=== PATIENT | male | born 1945 | race Caucasian/White ===

== ENCOUNTER 2019-07-19 13:31 | Inpatient (IN) ==
[2019-07-19] MEDS ORDERED: SODIUM CHLORIDE 0.9% 500 ML IV ONE (14:25)
[2019-07-19 14:49] LABS: Basophils # (auto) 0.02 K/uL (0-0.2); Basophils % (auto) 0.2 %; Eosinophils # (auto) 0.02 K/uL (0-0.5); Eosinophils % (auto) 0.2 %; Hematocrit (blood only) 45.7 % (42-52); Hemoglobin 15.7 g/dL (14.0-18.0); Immature Granulocytes # (auto) 0.01 K/uL (0.00-0.02); Immature Granulocytes % (auto) 0.1 %; Lymphocytes # (auto) 0.94 K/uL (1.2-3.4); Lymphocytes % (auto) 9.4 %; Mean Corpuscular Hemoglobin 31.7 pg (25-34); Mean Corpuscular Hgb Conc 34.4 g/dL (32-36); Mean Corpuscular Volume 92.3 fL (80-100); Mean Platelet Volume 10.3 fL (7.4-10.4); Monocytes # (auto) 0.62 K/uL (0.11-0.59); Monocytes % (auto) 6.2 %; Neutrophils % (auto) 83.9 %; Platelet Count 174 K/uL (130-400); RDW Coefficient of Variation 14.1 % (11.5-14.5); RDW Standard Deviation 47.6 fL (36.4-46.3); Red Blood Count 4.95 M/uL (4.7-6.1); White Blood Count 10.01 K/uL (4.8-10.8)
[2019-07-19 15:06] LABS: Alanine Aminotransferase 32 U/L (12-78); Albumin Level 3.9 gm/dl (3.4-5.0); Aspartate Aminotransferase 21 U/L (15-37); BUN Creatinine Ratio 14.6 (10-20); Blood Urea Nitrogen 16 mg/dl (7-18); Carbon Dioxide 27 mmol/L (21-32); Chloride 107 mmol/L (98-107); Creatinine Clr Calc Pharmacy 57.3 ml/min; Est GFR (African American) 74.4; Est GFR (Non-African American) 64.2; Glucose 115 mg/dl (70-99); Magnesium 2.1 mg/dl (1.8-2.4); Partial Thromboplastin Time 27.2 Seconds (21.0-31.0); Potassium 3.8 mmol/L (3.5-5.1); Prothrombin Time 10.1 Seconds (9.0-12.0); Sodium 139 mmol/L (136-145)
[2019-07-19] MEDS ORDERED: OPTIRAY 320 125ml IV PRN (15:12)
[2019-07-19 15:16] LABS: Albumin Globulin Ratio 1.2 (0.9-2); Alkaline Phosphatase 92 U/L (45-117); Bilirubin,Total 0.4 mg/dl (0.2-1); Globulin 3.3 gm/dl (2.5-4.0); Phosphorus 2.5 mg/dl (2.5-4.9); Total Protein 7.2 gm/dl (6.4-8.2); Troponin I < 0.015 ng/ml (0-0.045)
[2019-07-19 15:18] LABS: Appearance Urine Clear (Clear); Bilirubin Urine Negative (Negative); Blood Urine Negative (Negative); Color Urine Yellow; Glucose Urine UA Negative (Negative); Ketones Urine 1+ (Negative); Leukocyte Esterase Urine Negative (Negative); Nitrite Urine Negative (Negative); Protein Urine Negative (Negative); Specific Gravity Urine 1.011 (1.000-1.030); Urobilinogen Urine Negative (Negative); pH Urine 7.5 (4.5-7.5)
--- NOTE | 2019-07-19 15:26 | CT Scan Report ---
CT head/brain wo con CLINICAL HISTORY: History of abnormal MRI study with a left cerebellar infarct. COMPARISON STUDY: None TECHNIQUE: Axial CT of the brain is performed from the vertex to the skull base. IV contrast was not administered for this examination. A dose lowering technique was utilized adhering to the principles of ALARA. CT DOSE: FINDINGS: No intra or extra-axial mass lesions are visualized. There is no evidence of midline shift. There is no acute hemorrhage. No calvarial fractures are visualized. There are minor white matter hypodensities likely on a small vessel basis. There is a subtle hypodensity in the region of the left cerebellar peduncle. This could represent eit her an infarct or be artifactual. Correlation with patient's prior MRI study is recommended. There is no evidence of pathologic ventricular dilatation. There is no evidence of acute sinusitis IMPRESSION: 1. No evidence of acute hemorrhage 2. Small infarct in the region of the left cerebellar peduncle versus posterior fossa artifact. Corre lation with the prior MRI findings is recommended. ACT 112: Negative or not required by law. Electronically signed by: Satya Corrigan M.D. 07/19/2019 3:24 PM
--- NOTE | 2019-07-19 15:28 | CT Scan Report ---
CT angio head w con CLINICAL HISTORY: 74 years-old Male presenting with MRI on Tariq with subacute L cerebellar cva. TECHNIQUE: Multidetector CT angiography of the head was performed after the administration of intrave nous contrast. 3-D volumetric and/or maximum intensity projection (MIP) images were subsequently vipin nstructed for review. IV contrast: 119 mL of Optiray 320. One or more dose lowering techniques were u sed consistent with the principles of ALARA (as low as reasonably achievable), including automatic ex posure control, mA or kV adjustment to individual patient size, and/or use of iterative reconstructio n. COMPARISON: None. CT DOSE (mGy.cm): The estimated cumulative dose is 1149.39 mGy.cm. FINDINGS: Pot Lining Supervisor topogram: Unremarkable. Anterior circulation: Atherosclerosis of the cavernous segments of the internal carotid arteries. Int racranial portions of the internal carotid arteries patent to the level of the termini. Anterior cere bral arteries patent with a trifurcation at the anterior communicating artery resulting in 3 A2 segme nts. Middle cerebral arteries patent. Anterior communicating artery (Acomm) patent with an infundibul um at the left ORALIA origin. 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 Posterior circulation: Codominant vertebral arteries. Intradural portions of the vertebral arteries p atent. Posterior inferior cerebellar arteries patent. Basilar artery patent. Anterior inferior cerebe llar arteries poorly visualized. Superior cerebellar arteries patent. Posterior cerebral arteries pat ent. Right posterior communicating artery (P-comm) patent. Left P-comm hypoplastic or aplastic. Dural venous sinuses: Patent. Other: Extra-axial masslike thickening of the calvarium with periosteal reaction in the left temporal region (series 5 image 112). Right mastoid air cell fluid. IMPRESSION: 1. No evidence of aneurysm, focal vessel occlusion, or significant stenosis of the intracranial dion siria. 2. Variant anatomy as above. 3. Suspected meningioma in the left temporal region given the calvarial thickening. Follow-up nonurg ent outpatient contrast enhanced MR brain is recommended. 4. Nonspecific right mastoid air cell fluid. ACT 112: Negative or not required by law. Electronically signed by: Thee Buchanan M.D. 07/19/2019 3:27 PM
--- NOTE | 2019-07-19 15:29 | CT Scan Report ---
CT angio neck with con CLINICAL HISTORY: MRI on Thursday with subacute L cerebellar cva COMPARISON STUDY: No previous studies for comparison. TECHNIQUE: CT angiography was performed from the aortic arch to the skull base. MIP imaging was perfo rmed. The patient was scanned in a dynamic helical fashion during intravenous administration of 119 c c of Optiray 320. A dose lowering technique was utilized adhering to the principles of ALARA. CT DOSE: Technique: CT angiogram of the carotid and vertebral arteries was obtained using intravenous contrast and 3-D reconstruction. NASCET criteria was utilized. Findings: There is pulmonary emphysema. The right carotid revealed no evidence of aneurysm and no evidence of dissection. There is no evidenc e of hemodynamic significant stenosis. The left carotid revealed no evidence of hemodynamic significant stenosis. There is no evidence of an eurysm. There is no evidence of dissection. There is no evidence of hemodynamically significant vertebral stenosis. There is no evidence of verte bral dissection. There is a left vertebral fenestration at the C4 level. IMPRESSION: No evidence of hemodynamically significant carotid or vertebral artery stenosis. No evidence of disse ction. ACT 112: Negative or not required by law. Electronically signed by: Satya Corrigan M.D. 07/19/2019 3:28 PM
--- NOTE | 2019-07-19 17:04 | History & Physical Report ---
Date of Service July 19, 2019 Assessment & Plan (1) Stroke: Pt is 74 y/o M with PMH tobacco use presented to ER for abnormal MRI brain. Patient reports 6 months ago had noticed worsening vision described as " dark vision". In April 2019 had sudden onset of decline in vision and float ers which has continued. Denies any TONY, dizziness, paresthesias, extremity weakness, speech changes at that time. Followed with ophthalmology 05/2019 and vision loss thought secondary to macular degeneration. 07/15/2019 follow up and had MRI brain ordered Outpatient 07/16/2019 MRI brain with and without contrast: Small foci of restricted diffusion in the inferior aspect of the right cerebellum and the anterior superior aspect of the left cerebellum with associated FLAIR and T2 signal abnormalities, in keeping with acute/early subacute infarcts. Today in ER vitals stable. CT HEAD:1. No evidence of acute hemorrhage 2. Small infarct in the region of the left cerebellar peduncle versus posterior fossa artifact. Correlation with the prior MRI findings is recommended. CTA HEAD:1. No evidence of aneurysm, focal vessel occlusion, or significant stenosis of the intracranial arteries. 2. Variant anatomy as above. 3. Suspected meningioma in the left temporal region given the calvarial thickening. Follow-up nonurgent outpatient contrast enhanced MR brain is recommended. 4. Nonspecific right mastoid air cell fluid. CTA NECK:No evidence of hemodynamically significant carotid or vertebral artery stenosis. No evidence of dissection. -Tele to monitor for arrhythmias -Lipids, A1c in AM -Echo with bubble study -aspiration precautions -PT/OT consult -Start aspirin, Plavix, statin -neurology consult, spoke to Dr Diaz recommends aspirin and Plavix (2) HTN (hypertension): In ER BP: 138/84 up to 170/103 after pt upset about diagnosis and admiss ion. BP down to 147/90 shortly after -Monitor BP -May need to consider adding BP agent (3) Tobacco use: -Smoking cessation encouraged and pt reports would consider -Nicotine patch DVT Prophylaxis -Lovenox SQ Full Code as per discussion with pt, however reports if poor prognosis would not want maintained on life support Has not seen PCP for years. Is to become established with Dr Frederick in 07/2019. Pt was seen and care coordinated with Dr García. See addendum History of Present Illness Chief Complaint: Abnormal MRI brain Primary Care Provider: Jono Frederick MD Pt is 74 y/o M with PMH tobacco use presented to ER for abnormal MRI brain. Patient reports 6 months ago had noticed worsening vision described as " dark vision". In April 2019 had sudden onset of decline in vision and floaters. Denies any TONY, dizziness, paresthesias, extremity weakness, speech changes at that time. Patient reports vision decline has been consistent and has not had any worsening. Patient had followed up with ophthalmology Dr Mendiola from 06/10/2019 and was diagnosed with age-related macular degeneration both eyes with active choroidal revascularization and had a for Avastin injection. Reports had second opinion at [place] retina specialist. Patient had follow-up with ophthalmology on 07/15/2019 and patient had additional have Avastin injection and MRI brain was ordered. Patient reports has headaches approximately once a month and had most recent headache 2-3 days ago described as posterior headache relieved with 1 tab of Aleve. Denies any neuro symptoms. 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 Does not use any assist devices for walking. 07/16/2019 MRI brain with and without contrast: Small foci of restricted diffusion in the inferior aspect of the right cerebellum and the anterior superior aspect of the left cerebellum with associated FLAIR and T2 signal abnormalities, in keeping with acute/early subacute infarcts. Patient has not followed up with since . Denies fever/chills, diaphoresis, N/V/D/C, dizziness, syncope, speech changes, neck pain, CP, SOB, orthopnea, palpitations, cough, sore throat, choking, otalgia, rhinorrhea, abdominal pain, paresthesias, weakness, extremity weakness, extremity edema, rashes, urinary symptoms. Allergies Allergy/AdvReac Type Severity Reaction Status Date / Time No Known Allergies Allergy Unverified 07/19/19 16:04 Home Medications Home Medications Medication Instructions Recorded Confirmed Type vit C,E-Fe-ogznn-lutein-zeaxan 1 tab PO BID 07/19/19 07/19/19 History [PreserVision AREDS-2] Past Med/Surg History Medical History Macular degeneration Tobacco use Surgical History History of right inguinal hernia repair 1983 Family History Father Coronary heart disease Brother Cancer Sister Cancer Other Diabetes Hypertension Social History Preferred Language: Welsh Communication Ability: Effective Beliefs That Will Affect Care: None Current Living Situation: Family Current Living Situation Comment: LIVES WITH SON Other Information That Helps Us Care for You: No Feels Safe at Home: Yes Safety Concerns: Feels Safe At This Time Smoking Status: Current every day smoker Tobacco Type: cigars ; Cigarettes Per Day: 5 cigars/ day ; Do You Dip or Chew Tobacco: No ; Hx Alcohol Use: Yes (2 shots whiskey daily) Alcohol type: hard liquor Hx Substance Use: No Review of Systems Review of Systems: All systems reviewed & are unremarkable except as noted in HPI & below Physical Exam Physical Exam: General: no distress, WDWN Head: normocephalic, atraumatic Eyes: PERRL, EOM's intact, +conjunctiva injection to right eye, anicteric, +poor vision, able to see finger at approx 18 inches ENT: hard of hearing, normal inspection external ears, nose, mucous membranes moist Neck: supple, trachea midline, non-tender Lungs: clear, no respiratory distress, no wheezing/rhonchi/rales CV: RRR, no murmur, no pretibial edema Abd: normal BS, soft, non-tender Ext: no cyanosis, no calf tenderness Neuro: A&O x 3, normal affect, No nystagmus, Facial sensation is intact and symmetric, face is strong and symmetric, Soft palate elevates symmetrically, no dysarthria, Shoulder shrug intact, Tongue is midline, normal movement, no fasciculations, no pronator drift Skin: warm, dry Results & Data Vital Signs (Past 12 Hours) Vital Signs Temp Pulse Resp BP Pulse Ox 07/19/19 16:46 84 19 147/90 H 97 07/19/19 16:40 88 18 170/103 H 97 07/19/19 16:30 88 21 142/111 H 98 07/19/19 16:00 83 17 132/82 96 07/19/19 15:45 80 18 138/84 96 07/19/19 15:30 88 21 142/87 H 96 07/19/19 15:22 94 H 18 97 07/19/19 15:00 90 22 146/85 H 97 07/19/19 14:45 94 H 22 130/90 07/19/19 14:31 89 16 146/104 H 95 07/19/19 14:30 92 H 21 96 07/19/19 14:15 99 H 21 157/103 H 96 07/19/19 14:05 95 H 19 95 07/19/19 14:00 97 H 21 151/101 H 94 07/19/19 13:38 36.4 C L 104 H 18 159/108 H 98 Laboratory Results Short CBC 07/19/19 Range/Units 14:40 WBC 10.01 (4.8-10.8) K/uL Hgb 15.7 (14.0-18.0) g/dL Hct 45.7 (42-52) % Plt Count 174 (130-400) K/uL BMP 07/19/19 14:40 Sodium 139 Potassium 3.8 Chloride 107 Carbon Dioxide 27 BUN 16 Creatinine 1.11 Glucose 115 H Calcium 9.0 Cardiac Enzymes 07/19/19 Range/Units 14:40 Troponin I < 0.015 (0-0.045) ng/ml Liver Function 07/19/19 Range/Units 14:40 Total Bilirubin 0.4 (0.2-1) mg/dl AST 21 (15-37) U/L ALT 32 (12-78) U/L Alkaline Phosphatase 92 (45-117) U/L Albumin 3.9 (3.4-5.0) gm/dl Urine 07/19/19 Range/Units 14:58 Urine Color Yellow Urine Appearance Clear (Clear) Urine pH 7.5 (4.5-7.5) Ur Specific [place] 1.011 (1.000-1.030) Urine Protein Negative (Negative) Urine Glucose (UA) Negative (Negative) Diagnostic Findings CT HEAD: IMPRESSION: 1. No evidence of acute hemorrhage 2. Small infarct in the region of the left cerebellar peduncle versus posterior fossa artifact. Correlation with the prior MRI findings is recommended. CTA HEAD: IMPRESSION: 1. No evidence of aneurysm, focal vessel occlusion, or significant stenosis of the intracranial arteries. 2. Variant anatomy as above. 3. Suspected meningioma in the left temporal region given the calvarial thickening. Follow-up nonurgent outpatient contrast enhanced MR brain is recommended. 4. Nonspecific right mastoid air cell fluid. CTA NECK: IMPRESSION: No evidence of hemodynamically significant carotid or vertebral artery stenosis. No evidence of dissection. ECG Rate (beats per minute): 88 Rhythm: sinus rhythm Code Status & VTE Plan VTE Prophylaxis Plan VTE Prophylaxis will be ordered: Yes Supervising Physician Co-Signing Physician Notes Attending Addendum: care coordinated with CARLO Waddell please refer to her notes for full details, I agree with her notes patient seen and examined, records reviewed by myself as well on exam, patient seen resting in bed, comfortable, not in distress reports ongoing visual disturbance- blurry for the past few weeks, unchanged for the past few days no other new focal weakness or nubmness no other symptoms VS noted and reviewed oriented x 3 , not in distress, speaks in sentences with no effort nor accessory muscle use normal rate, regular rhythm, no murmurs clear breath sounds bilaterally non distended, soft, nontender no bipedal edema, erythema, warmth Neuro: (+) decreased visual acuity, otherwise CN 2-12 grossly intact no other focal neuro deficits on exam WBC 10 Hg 15[address] head: 1. No evidence of acute hemorrhage 2. Small infarct in the region of the left cerebellar peduncle versus posterior fossa artifact. Correlation with the prior MRI findings is recommended. CT angio head: 1. No evidence of aneurysm, focal vessel occlusion, or significant stenosis of the intracranial arteries. 2. Variant anatomy as above. 3. Suspected meningioma in the left temporal region given the calvarial thickening. Follow-up nonurgent outpatient contrast enhanced MR brain is recommended. 4. Nonspecific right mastoid air cell fluid. Ct angio neck: No evidence of hemodynamically significant carotid or vertebral artery stenosis. No evidence of dissection. ASSESSMENT AND PLAN VISUAL DISTURBANCE, LIKELY SECONDARY TO CEREBELLAR STROKE discussed with Dr. Diaz- recommend ASA + Plavix, Lipitor check echo will need child monitor as outpatient ELEVATED BLOOD PRESSURE likely from underlying stress monitor other diagnoses and plan of care as per CARLO Waddell. notes Philippe García MD (1) Stroke CVA mechanism: unspecified Qualified Code(s): I63.9 - Cerebral infarction, unspecified
[2019-07-19] MEDS ORDERED: PHARMACIST DISCHARGE MED REC CONSULT PRN (18:39)
[2019-07-19] MEDS ORDERED: ACETAMINOPHEN 325 MG TAB PO PRN (18:39)
[2019-07-19] MEDS: CLOPIDOGREL BISULFATE 75 MG TAB PO SCH (20:07)
[2019-07-19] MEDS: ASPIRIN 81 MG ECTAB PO SCH (20:08)
[2019-07-19] MEDS ORDERED: NON-FORMULARY MEDICATION (Vit C,E-Zn-Coppr-Lutein-Zeaxan [Preservision Areds-2] 1 TAB) PO SCH (21:00)
[2019-07-19] MEDS ORDERED: ENOXAPARIN INJ 40 MG/0.4 ML SYR SQ SCH (21:00)
--- NOTE | 2019-07-19 22:10 | Emergency Department Note ---
Entered by Madeleine Goldman acting as a scribe for Eb Garvin MD History of Present Illness General Chief complaint: Visual Disturbance Stated complaint: LOOSING EYE SIGHT Time Seen by Provider: 07/19/19 14:03 Source: patient History of Present Illness Provider complaint: Visual Disturbances Onset (ago): month(s) 1 Location: eyes Relieved By: + none Exacerbated By: + none Associated symptoms: + cough The patient is a 74 year old male who presents to the Emergency Room with complaints of visual disturbances that began 1 month ago. The patient states that his symptoms are not relieved nor exacerbated by anything specific. The patient reports experiencing a cough. The patient notes that he had an MRI done on Thursday and it was clear but the patient states that the doctor called back and told him to honeycutt to the ED. Home Medications Home Medications Medication Instructions Recorded Confirmed Type vit C,M-Nn-jjnyy-lutein-zeaxan 1 tab PO BID 07/19/19 07/19/19 History [PreserVision AREDS-2] Allergies Allergy/AdvReac Type Severity Reaction Status Date / Time No Known Allergies Allergy Unverified 07/19/19 16:04 Past Med/Surg History Medical History Macular degeneration Stroke (Acute) Tobacco use Surgical History History of right inguinal hernia repair 1983 Family History Father Coronary heart disease Brother Cancer Sister Cancer Other Diabetes Hypertension Social History Preferred Language: [place] Communication Ability: Effective Beliefs That Will Affect Care: None Current Living Situation: Family Current Living Situation Comment: LIVES WITH SON Other Information That Helps Us Care for You: No Feels Safe at Home: Yes Safety Concerns: Feels Safe At This Time Smoking Status: Current every day smoker Tobacco Type: cigars ; Cigarettes Per Day: 5 cigars/ day ; Do You Dip or Chew Tobacco: No ; Hx Alcohol Use: Yes (2 shots whiskey daily) Alcohol type: hard liquor Hx Substance Use: No Review of Systems See HPI for pertinent positives & negatives. and A total of 10 systems reviewed and were otherwise negative Physical Exam Vital Signs Vital Signs - 24 hr 07/19/19 13:38 07/19/19 14:00 07/19/19 14:05 Temperature 36.4 C L Temperature Source Oral Pulse Rate 104 H 97 H 95 H Pulse Rate from SpO2 Sensor 96 H 95 H Pulse Rhythm Regular Pulse Strength Normal Respiratory Rate 18 21 19 Respiratory Effort / Characteristics Non-Labored Respiratory Depth Normal Respiratory Pattern Regular Blood Pressure 159/108 H 151/101 H Blood Pressure Mean 125 118 Blood Pressure Position Sitting Pulse Oximetry 98 94 95 Oxygen Delivery Method Room Air Sepsis Recent Fever Within 48 Hours No Sepsis New/Unexplained Change in Mental Status No Sepsis Action Taken by Nursing No Action Required 07/19/19 14:15 07/19/19 14:30 07/19/19 14:31 Temperature Temperature Source Pulse Rate 99 H 92 H 89 Pulse Rate from SpO2 Sensor 99 H 95 H 89 Pulse Rhythm Pulse Strength Respiratory Rate 21 21 16 Respiratory Effort / Characteristics Respiratory Depth Respiratory Pattern Blood Pressure 157/103 H 146/104 H Blood Pressure Mean 109 127 Blood Pressure Position Pulse Oximetry 96 96 95 Oxygen Delivery Method Sepsis Recent Fever Within 48 Hours Sepsis New/Unexplained Change in Mental Status Sepsis Action Taken by Nursing 07/19/19 14:45 07/19/19 15:00 07/19/19 15:22 Temperature Temperature Source Pulse Rate 94 H 90 94 H Pulse Rate from SpO2 Sensor 91 H 93 H Pulse Rhythm Pulse Strength Respiratory Rate 22 22 18 Respiratory Effort / Characteristics Respiratory Depth Respiratory Pattern Blood Pressure 130/90 146/85 H Blood Pressure Mean 99 112 Blood Pressure Position Pulse Oximetry 97 97 Oxygen Delivery Method Sepsis Recent Fever Within 48 Hours Sepsis New/Unexplained Change in Mental Status Sepsis Action Taken by Nursing 07/19/19 15:30 07/19/19 15:45 07/19/19 16:00 Temperature Temperature Source Pulse Rate 88 80 83 Pulse Rate from SpO2 Sensor 89 80 81 Pulse Rhythm Pulse Strength Respiratory Rate 21 18 17 Respiratory Effort / Characteristics Respiratory Depth Respiratory Pattern Blood Pressure 142/87 H 138/84 132/82 Blood Pressure Mean 94 93 91 Blood Pressure Position Pulse Oximetry 96 96 96 Oxygen Delivery Method Sepsis Recent Fever Within 48 Hours Sepsis New/Unexplained Change in Mental Status Sepsis Action Taken by Nursing 07/19/19 16:30 07/19/19 16:40 07/19/19 16:46 Temperature Temperature Source Pulse Rate 88 88 84 Pulse Rate from SpO2 Sensor 90 87 86 Pulse Rhythm Pulse Strength Respiratory Rate 21 18 19 Respiratory Effort / Characteristics Respiratory Depth Respiratory Pattern Blood Pressure 142/111 H 170/103 H 147/90 H Blood Pressure Mean 125 128 120 Blood Pressure Position Pulse Oximetry 98 97 97 Oxygen Delivery Method Sepsis Recent Fever Within 48 Hours Sepsis New/Unexplained Change in Mental Status Sepsis Action Taken by Nursing GENERAL: Awake, alert, well-appearing, in no distress HENT: Normocephalic, atraumatic. Oropharynx with dry mucous membranes and otherwise unremarkable. EYES: Normal conjunctiva. Sclera non-icteric. Impaired vision but with gross vision intact able to count fingers and describe illustrations and near vision. There is a scant right subdural Tylenol hemorrhage from his recent injections. EOMI. No nystamgus. PEARRL. NECK: Supple. No nuchal rigidity. FROM. No JVD. RESPIRATORY: CTAB. CARDIAC: Regular rate, normal rhythm. Extremities warm and well perfused. Pulses equal. ABDOMEN: Soft, non-distended. No tenderness to palpation. No rebound or guarding. No masses. RECTAL: Deferred. MUSCULOSKELETAL: Chest examination reveals no tenderness. The back is symmetrical on inspection without obvious abnormality. There is no CVA t enderness to palpation. No joint edema. LOWER EXTREMITIES: Calves are equal size bilaterally and non-tender. No edema. No discoloration. NEURO: Normal sensorium. No sensory or motor deficits noted. 5/5 strength and SILT x4 extremities. Cerebellar function intact, including finger to nose, alternating palms, heel to das. SKIN: No rash or jaundice noted. Course Course 1412: Past medical records reviewed. The patient was evaluated in room A12B. A complete history and physical exam was performed. 1432: [facility] MRI results were reviewed. MRI revealed small foci of restricted diffusion in the inferior aspect of the right cerebellum and the anterior superior aspect of the left cerebellum with associated FLAIR and T2 signal abnormalities, in keeping with acute/ear;y subacute infarcts. Per [facility], the symptoms are at least 3 days old. 1553: I spoke with Miriam Brandon PA-C about the patient's case and Dr. García- Hospitalist will accept the patient for further evaluation. Administered Medications Aspirin (Ecotrin Ectab) 81 mg PO [facility] Stop: 08/18/19 18:38 Last Admin: 07/19/19 20:08 Dose: 81 mg Documented by: [id number] Clopidogrel Bisulfate (Plavix) [facility] [place] Stop: 08/18/19 18:38 Last Admin: 07/19/19 20:07 Dose: 75 mg Documented by: [id number] Enoxaparin Sodium (Lovenox) 40 mg SQ Q24H [facility]HEN Stop: 08/18/19 20:59 Last Admin: 07/19/19 20:05 Dose: 40 mg Documented by: [id number] Discontinued Medications Sodium Chloride (Nss) 500 mls @ 999 mls/hr IV .Q31M ONE Stop: 07/19/19 14:55 Last Infusion: 07/19/19 15:26 Dose: 0 mls/hr Documented by: [id number] Admin: 07/19/19 14:51 Dose: 999 mls/hr Documented by: [id number] Ioversol (Optiray 320 125ml) 119 ml IV ONCE PRN PRN Reason: Interaction Checking Stop: 07/23/19 15:11 Last Admin: 07/19/19 15:12 Dose: 119 ml Documented by: [id number] Medical Decision Making Differential Diagnosis Differential Diagnosis includes but is not limited to dehydration, stroke, anemia, hypoglycemia, hyponatremia, hypernatremia, urinary tract infection, pneumonia, bronchitis, sepsis, gastroenteritis, additional abdominal pathology, metabolic abnormalities and infections. Medical Records Attestation: I reviewed the patient's medical records. Home Medications Current Medication List: was personally reviewed by me Laboratory Data Attestation: I reviewed the patient's lab results. Result diagrams: 07/19/19 14:40 07/19/19 14:40 Lab Results 07/19/19 07/19/19 07/19/19 Range/Units 14:36 14:40 14:40 WBC 10.01 (4.8-10.8) K/uL RBC 4.95 (4.7-6.1) M/uL Hgb 15.7 (14.0-18.0) g/dL Hct 45.7 (42-52) % MCV 92.3 (80-100) fL MCH 31.7 (25-34) pg MCHC 34.4 (32-36) g/dL RDW Std Deviation 47.6 H (36.4-46.3) fL RDW Coeff of Mukesh 14.1 (11.5-14.5) % Plt Count 174 (130-400) K/uL MPV 10.3 (7.4-10.4) fL Immature Gran % (Auto) 0.1 % Neut % (Auto) 83.9 % Lymph % (Auto) 9.4 % Carver % (Auto) 6.2 % Eos % (Auto) 0.2 % Baso % (Auto) 0.2 % Immature Gran # (Auto) 0.01 (0.00-0.02) K/uL Neut # (Auto) 8.40 H (1.4-6.5) K/uL Lymph # (Auto) 0.94 L (1.2-3.4) K/uL Carver # (Auto) 0.62 H (0.11-0.59) K/uL Eos # (Auto) 0.02 (0-0.5) K/uL Baso # (Auto) 0.02 (0-0.2) K/uL PT 10.1 (9.0-12.0) Seconds INR 1.0 (0.9-1.1) APTT 27.2 (21.0-31.0) Seconds PTT Ratio 1.0 Sodium (136-145) mmol/L Potassium (3.5-5.1) mmol/L Chloride (98-107) mmol/L Carbon Dioxide (21-32) mmol/L Anion Gap (3-11) BUN (7-18) mg/dl Creatinine (0.6-1.4) mg/dl Est Cr Clr Drug Dosing ml/min Est GFR ( Amer) Est GFR (Non-Af Amer) BUN/Creatinine Ratio (10-20) Glucose (70-99) mg/dl POC Glucose 113 H (70-99) mg/dl Calcium (8.5-10.1) mg/dl Phosphorus (2.5-4.9) mg/dl Magnesium (1.8-2.4) mg/dl Total Bilirubin (0.2-1) mg/dl AST (15-37) U/L ALT (12-78) U/L Alkaline Phosphatase (45-117) U/L Troponin I (0-0.045) ng/ml Total Protein (6.4-8.2) gm/dl Albumin (3.4-5.0) gm/dl Globulin (2.5-4.0) gm/dl Albumin/Globulin Ratio (0.9-2) TSH (0.300-4.500) uIu/ml Urine Color Urine Appearance (Clear) Urine pH (4.5-7.5) Ur Specific Farnham (1.000-1.030) Urine Protein (Negative) Urine Glucose (UA) (Negative) Urine Ketones (Negative) Urine Blood (Negative) Urine Nitrite (Negative) Urine Bilirubin (Negative) Urine Urobilinogen (Negative) Ur Leukocyte Esterase (Negative) 07/19/19 07/19/19 Range/Units 14:40 14:58 WBC (4.8-10.8) K/uL RBC (4.7-6.1) M/uL Hgb (14.0-18.0) g/dL Hct (42-52) % MCV (80-100) fL MCH (25-34) pg MCHC (32-36) g/dL RDW Std Deviation (36.4-46.3) fL RDW Coeff of Mukesh (11.5-14.5) % Plt Count (130-400) K/uL MPV (7.4-10.4) fL Immature Gran % (Auto) % Neut % (Auto) % Lymph % (Auto) % Carver % (Auto) % Eos % (Auto) % Baso % (Auto) % Immature Gran # (Auto) (0.00-0.02) K/uL Neut # (Auto) (1.4-6.5) K/uL Lymph # (Auto) (1.2-3.4) K/uL Carver # (Auto) (0.11-0.59) K/uL Eos # (Auto) (0-0.5) K/uL Baso # (Auto) (0-0.2) K/uL PT (9.0-12.0) Seconds INR (0.9-1.1) APTT (21.0-31.0) Seconds PTT Ratio Sodium 139 (136-145) mmol/L Potassium 3.8 (3.5-5.1) mmol/L Chloride 107 (98-107) mmol/L Carbon Dioxide 27 (21-32) mmol/L Anion Gap 5.0 (3-11) BUN 16 (7-18) mg/dl Creatinine 1.11 (0.6-1.4) mg/dl Est Cr Clr Drug Dosing 57.3 ml/min Est GFR ( Amer) 74.4 Est GFR (Non-Af Amer) 64.2 BUN/Creatinine Ratio 14.6 (10-20) Glucose 115 H (70-99) mg/dl POC Glucose (70-99) mg/dl Calcium 9.0 (8.5-10.1) mg/dl Phosphorus 2.5 (2.5-4.9) mg/dl Magnesium 2.1 (1.8-2.4) mg/dl Total Bilirubin 0.4 (0.2-1) mg/dl AST 21 (15-37) U/L ALT 32 (12-78) U/L Alkaline Phosphatase 92 (45-117) U/L Troponin I < 0.015 (0-0.045) ng/ml Total Protein 7.2 (6.4-8.2) gm/dl Albumin 3.9 (3.4-5.0) gm/dl Globulin 3.3 (2.5-4.0) gm/dl Albumin/Globulin Ratio 1.2 (0.9-2) TSH 1.340 (0.300-4.500) uIu/ml Urine Color Yellow Urine Appearance Clear (Clear) Urine pH 7.5 (4.5-7.5) Ur Specific Farnham 1.011 (1.000-1.030) Urine Protein Negative (Negative) Urine Glucose (UA) Negative (Negative) Urine Ketones 1+ H (Negative) Urine Blood Negative (Negative) Urine Nitrite Negative (Negative) Urine Bilirubin Negative (Negative) Urine Urobilinogen Negative (Negative) Ur Leukocyte Esterase Negative (Negative) Imaging Data Radiologist's Impression: Radiology results as stated below per my review and the radiologist's interpretation: CT head/brain wo con CLINICAL HISTORY: History of abnormal MRI study with a left cerebellar infarct. COMPARISON STUDY: None TECHNIQUE: Axial CT of the brain is performed from the vertex to the skull base. IV contrast was not administered for this examination. A dose lowering technique was utilized adhering to the principles of ALARA. CT DOSE: FINDINGS: No intra or extra-axial mass lesions are visualized. There is no evidence of midline shift. There is no acute hemorrhage. No calvarial fractures are visualized. There are minor white matter hypodensities likely on a small vessel basis. There is a subtle hypodensity in the region of the left cerebellar peduncle. This could represent either an infarct or be artifactual. Correlation with patient's prior MRI study is recommended. There is no evidence of pathologic ventricular dilatation. There is no evidence of acute sinusitis IMPRESSION: 1. No evidence of acute hemorrhage 2. Small infarct in the region of the left cerebellar peduncle versus posterior fossa artifact. Correlation with the prior MRI findings is recommended. ACT 112: Negative or not required by law. Electronically signed by: Satya Corrigan M.D. 07/19/2019 3:[address] angio head w con CLINICAL HISTORY: 74 years-old Male presenting with MRI on Thursday with subacute L cerebellar cva. TECHNIQUE: Multidetector CT angiography of the head was performed after the administration of intravenous contrast. 3-D volumetric and/or maximum intensity projection (MIP) images were subsequently reconstructed for review. IV contrast: 119 mL of Optiray 320. One or more dose lowering techniques were used consistent with the principles of ALARA (as low as reasonably achievable), including automatic exposure control, mA or kV adjustment to individual patient size, and/or use of iterative reconstruction. COMPARISON: None. CT DOSE (mGy.cm): The estimated cumulative dose is 1149.39 mGy.cm. FINDINGS: Irrigation Worker topogram: Unremarkable. Anterior circulation: Atherosclerosis of the cavernous segments of the internal carotid arteries. Intracranial portions of the internal carotid arteries patent to the level of the termini. Anterior cerebral arteries patent with a trifurcation at the anterior communicating artery resulting in 3 A2 segments. Middle cerebral arteries patent. Anterior communicating artery (Acomm) patent with an infundibulum at the left ORALIA origin. 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 Posterior circulation: Codominant vertebral arteries. Intradural portions of the vertebral arteries patent. Posterior inferior cerebellar arteries patent. Basilar artery patent. Anterior inferior cerebellar arteries poorly visualized. Superior cerebellar arteries patent. Posterior cerebral arteries patent. Right posterior communicating artery (P-comm) patent. Left P-comm hypoplastic or aplastic. Dural venous sinuses: Patent. Other: Extra-axial masslike thickening of the calvarium with periosteal reaction in the left temporal region (series 5 image 112). Right mastoid air cell fluid. IMPRESSION: 1. No evidence of aneurysm, focal vessel occlusion, or significant stenosis of the intracranial arteries. 2. Variant anatomy as above. 3. Suspected meningioma in the left temporal region given the calvarial thickening. Follow-up nonurgent outpatient contrast enhanced MR brain is recommended. 4. Nonspecific right mastoid air cell fluid. ACT 112: Negative or not required by law. Electronically signed by: Thee Buchanan M.D. 07/19/2019 3:[address] angio neck with con CLINICAL HISTORY: MRI on Thursday with subacute L cerebellar cva COMPARISON STUDY: No previous studies for comparison. TECHNIQUE: CT angiography was performed from the aortic arch to the skull base. MIP imaging was performed. The patient was scanned in a dynamic helical fashion during intravenous administration of 119 cc of Optiray 320. A dose lowering technique was utilized adhering to the principles of ALARA. CT DOSE: Technique: CT angiogram of the carotid and vertebral arteries was obtained using intravenous contrast and 3-D reconstruction. NASCET criteria was utilized. Findings: There is pulmonary emphysema. The right carotid revealed no evidence of aneurysm and no evidence of dissection. There is no evidence of hemodynamic significant stenosis. The left carotid revealed no evidence of hemodynamic significant stenosis. There is no evidence of aneurysm. There is no evidence of dissection. There is no evidence of hemodynamically significant vertebral stenosis. There is no evidence of vertebral dissection. There is a left vertebral fenestration at the C4 level. IMPRESSION: No evidence of hemodynamically significant carotid or vertebral artery stenosis. No evidence of dissection. ACT 112: Negative or not required by law. Electronically signed by: Satya Corrigan M.D. 07/19/2019 3:28 PM ECG Data Indication: + other (Visual Disturbances) Rate (beats per minute): 88 Rhythm: + normal sinus ECG Intervals/blocks: + Normal QRS (QRS 80) and + Normal QT-c (QTC 445) ECG Mcnabb: + Left axis deviation ECG ST segments: no ST depression and no ST elevation ECG Findings: no PACs and no PVCs Blood Pressure Blood Pressure Findings: Elevated blood pressure Blood Pressure Disposition: further management by hospitalist SAMAN Narrative The patient is a pleasant 74-year-old gentleman who presents emergency department for evaluation of changes over the past month having had outpatient MRI that demonstrated subacute to acute left cerebellar CVA which was performed on 07/16 contacted today by his grill cook who had ordered the study and discussed with neurology who recommended presentation to the emergency department per HPI. Symptoms occur in the setting of an abrupt change in his visual acuity occurring from April to May where he was diagnosed with macular degeneration and started on treatment with injection in May and again on . Pacifically, the patient denies any acute worsening of these vision changes since May. Additionally he denies any weakness of e xtremities, difficulty with speech, difficulty with ambulation or balance. On arrival the patient is in no acute distress, afebrile stable vital signs. On exam patient appears clinically dry. He has impairment of his vision bilaterally but has gross vision intact able to count fingers and described illustrations and near field of vision. EKG without overt acute ischemia. WBC, H/H and platelets within normal limits. Chemistry without acidosis. Electrolytes LFTs unremarkable. Troponin negative/undetectable. UA negative for infection with ketones present consistent with the patient's clinically dry appearance. CT of the head performed and demonstrates small infarct in the region of left cerebellar peduncle versus posterior fossa artifact. CTA of the head negative for focal vessel occlusion aneurysm or significant stenosis. There is a sub-affected meningioma the left temporal region. CTA of the neck negative for severe narrowing or occlusion of large vessels. Given the patien t's CT and outpatient MRI findings reasonable to admit the patient for further stroke evaluation. Patient and family are agreeable with this. Given he has no acute symptoms there was no indication for stroke alert. Case was discussed with Cassandra Michael, [facility], who evaluate the patient for admission. Impression & Plan Stroke, Subconjunctival hemorrhage, Macular degeneration, Dehydration Discharge Plan Visit Data *Final* Discharge Date/Time: 07/19/19 18:40 Chief Complaint: Visual Disturbance Stated Complaint: LOOSING EYE SIGHT ED Provider: Eb Garvin Discharge Problem: Stroke, Subconjunctival hemorrhage, Macular degeneration, Dehydration Patient Disposition: Admitted As Inpatient Discharge Problem: Stroke Qualifiers: CVA mechanism: unspecified Qualified Code(s): I63.9 - Cerebral infarction, unspecified The scribe's documentation has been prepared under my direction and personally reviewed by me in its entirety. I confirm that the note above accurately reflects all work, treatment, procedures, and medical decision making performed by me.
--- NOTE | 2019-07-19 23:11 | Electrocardiogram Report ---
Test Reason : Blood Pressure : / mmHG Vent. Rate : 088 BPM Atrial Rate : 088 BPM P-R Int : 164 ms QRS Dur : 080 ms QT Int : 368 ms P-R-T Axes : 065 -59 055 degrees QTc Int : 445 ms Normal sinus rhythm Possible Left atrial enlargement Left axis deviation Septal infarct , age undetermined Abnormal ECG No previous ECGs available Confirmed by Pedro Ribeiro ([id number]) on 07/19/2019 11:11:14 PM Referred By: REFERRED SELF Confirmed By:Pedro Ribeiro
[2019-07-20 07:27] LABS: Estimated Average Glucose 126 mg/dl
[2019-07-20 07:38] LABS: Chol HDL Ratio 4; Cholesterol 200 mg/dl (0-200); HDL Cholesterol 57 mg/dl; LDL Cholesterol Calculated 124 mg/dl; Triglycerides 94 mg/dl (0-150); VLDL Cholesterol 19 mg/dl
[2019-07-20] MEDS: ASPIRIN 81 MG ECTAB PO SCH (08:29)
[2019-07-20] MEDS: CLOPIDOGREL BISULFATE 75 MG TAB PO SCH (08:29)
[2019-07-20] MEDS ORDERED: NICOTINE 21 MG/24 HR TDSY TD SCH (09:00)
[2019-07-20] MEDS ORDERED: ATORVASTATIN 40 MG TAB PO SCH (09:00)
--- NOTE | 2019-07-20 15:12 | Neurology Consultation ---
Date of Consultation July 20, 2019 Assessment & Plan (1) Stroke: 1. MRI - outside with R/L cerebellum infarct 2. PT/OT speech no current needs 3. smoking cessation discussed 4. modifying life style including limiting EtoH use 5. plavix 75 mg and aspirin 81 mg daily x 21 days then aspirin only 6. optimize HTN, HLD, DM LDL <70 7. TTE pending- need results prior to discharge 8. outpatient ZIO 2 weeks 9. continue to follow with neuro ophthalmology as scheduled for MD 10. needs follow up with PCP for medical management neurology in 4-6 weeks after discharge Yulia Monsalve PAC schedule (2) Tobacco use: as above (3) Macular degeneration: as above Supervising Physician Co-Signing Physician Notes I have seen and discussed above patient with Dr Curt Diaz, neurology I have seen, interviewed and examined this man and discussed his case with Yulia Monsalve PA-C in addition to reviewing his diagnostic studies and the report of his MRI scan which was done on an outpatient basis at the request of our retinal specialist who was concerned because of the rapidity of this man's visual loss. The MRI showed what is likely clinically silent bilateral cerebellar infarctions of small size and examination does not show anything significant other than the central visual loss which is due to the macular degeneration and there is nothing in the occipital cortex to suggest there was a component of ischemic change to explain the central visual deterioration Thus far studies are pretty unremarkable with the echocardiographic examination has not yet been reported We certainly at this point of no evidence for embolic sources but he still could have have paroxysmal atrial fibrillation or a cardiogenic source of other type and will need review of the echocardiogram, continue dual antiplatelet therapy for now and probably an outpatient ZIO Patch if the current echocardiogram does not show a clear source for these clinically silent posterior circulation events Neurology will sign off at this time with plans to see the man in follow-up in about a month and to continue the dual antiplatelet therapy until we have a sergio nce to reassess things Curt Diaz MD History of Present Illness Reason for Consultation: stroke Requesting Physician: Malathi Conti MD Attending Physician: Malathi Conti MD History of Present Illness Tesfaye is a 74 year old male with PMH tobacco use (6 cigars daily) presented to ER for abnormal MRI brain. Around hunting season he was having issues with worsening vision described as " dark vision". In April 2019 had sudden onset of decline in vision and floaters. Since then his vision has been consistent and has not had any worsening. He has been seeing ophthalmology Dr Mendiola from 06/10/2019 and was diagnosed with age-related macular degeneration both eyes with active choroidal revascularization and had a for Avastin injection. He then saw a retinal specialist and follow-up with ophthalmology on 07/15/2019 and patient had additional have Avastin injection and MRI brain was ordered. He has headaches approximately once a month and had most recent headache 2-3 days ago described as posterior headache relieved with 1 tab of Aleve. The MRI did show strokes in the R/L cerebellar. He has not seen a doctor since 1990 when he last renewed his [employer] license. He is not aware of any other medical issues but does state his father had a heart attack at age 49 but lived into his 90's. denies CP, SOB, abdominal pain one sided weakness, numbness tingling, N, V, swallowing issues, new bowel or bladder issues. Allergies Allergy/AdvReac Type Severity Reaction Status Date / Time No Known Allergies Allergy Unverified 07/19/19 16:04 Home Medications Home Medications Medication Instructions Recorded Confirmed Type PreserVision AREDS-2 1 tab PO BID 07/19/19 07/19/19 History aspirin [Ecotrin Low Strength] 81 mg PO QAM 30 Days #30 tab 07/20/19 Rx atorvastatin 40 mg PO QAM 30 Days #30 tab 07/20/19 Rx clopidogrel 75 mg PO QAM 21 Days #21 tab 07/20/19 Rx Patient History Medical History Macular degeneration Stroke (Acute) Tobacco use Surgical History History of right inguinal hernia repair 1983 Family History Father Coronary heart disease Brother Cancer Sister Cancer Other Diabetes Hypertension Social History Preferred Language: Polish Communication Ability: Effective Beliefs That Will Affect Care: None Current Living Situation: Family Current Living Situation Comment: LIVES WITH SON Other Information That Helps Us Care for You: No Feels Safe at Home: Yes Safety Concerns: Feels Safe At This Time Smoking Status: Current every day smoker Tobacco Type: cigars ; Cigarettes Per Day: 5 cigars/ day ; Do You Dip or Chew Tobacco: No ; Hx Alcohol Use: Yes (2 shots whiskey daily) Alcohol type: hard liquor Hx Substance Use: No Physical Exam Physical Exam: Physical Exam: Constitutional: appearance over nourished, healthy and normal Ears, Nose, Mouth and Throat: mucous membranes moist, no injection and skin normal, eyes normal Cardiovascular: normal S-1 and S-2 and regular rate and rhythm Respiratory: course breath sounds Musculoskeletal: no peripheral edema and good distal pulses Skin: no stigmata of neurocutaneous disease noted and normal and intact Eyes: extraocular muscles intact (EOMI) and pupils equal, round and reactive to light (PERRL), gross peripheral vision intact NEUROLOGIC EXAMINATION: Mental status: Alert and interactive Oriented to full date and location Oriented to person Speech fluent with no evidence of aphasia Cranial Nerves smile eye brow raise symmetric Reflexes: Deep tendon reflexes were symmetrical and graded 2/5. down going toes Sensory: no sensory deficits, light cool or vibration Coordination: finger to nose some difficulty with midline vision, heel to das intact Gait/Stance: Posture normal. has been up walking to the bathroom and with PT no difficulty Motor: Negative for pronator drift of out stretched arms with eyes closed. Strength: hand physics professor biceps triceps deltoids bilaterally 5/5 hip flex patellar planter flex ext 5/5 Results & Data Vital Signs (Past 12 Hours) Vital Signs Temp Pulse Resp BP Pulse Ox 07/20/19 11:36 36.6 C 86 18 135/90 96 07/20/19 07:00 36.7 C 82 20 156/92 H 94 07/20/19 04:00 36.6 C 78 20 149/98 H 94 Laboratory Results Abnormal lab results 07/19/19 07/20/19 Range/Units 14:58 06:31 Hemoglobin A1c 6.0 H (4.5-5.6) % Urine Ketones 1+ H (Negative) Diagnostic Findings 07/16/2019 MRI brain with and without contrast: Small foci of restricted diffusion in the inferior aspect of the right cerebellum and the anterior superior aspect of the left cerebellum with associated FLAIR and T2 signal abnormalities, in keeping with acute/early subacute infarcts. CTA head-No evidence of aneurysm, focal vessel occlusion, or significant stenosis of the intracranial arteries. Variant anatomy as above. Suspected meningioma in the left temporal region given the calvarial thickening. Follow-up nonurgent outpatient contrast enhanced MR brain is recommended. Nonspecific right mastoid air cell fluid. CTA neck-No evidence of hemodynamically significant carotid or vertebral artery stenosis. No evidence of dissection. TTE pending (1) Stroke CVA mechanism: unspecified Qualified Code(s): I63.9 - Cerebral infarction, unspecified
--- NOTE | 2019-07-20 15:30 | Hospitalist Progress Note ---
Date of Service July 20, 2019 Assessment & Plan (1) Stroke: Acute versus subacute stroke: Pt is 74 y/o M with PMH tobacco use presented to ER for abnormal MRI brain. Patient reports 6 months ago had noticed worsening vision described as " dark vision". In April 2019 had sudden onset of decline in vision and floaters which has continued. Denies any TONY, dizziness, paresthesias, extremity weakness, speech changes at that time. Followed with ophthalmology 05/2019 and vision loss thought secondary to macular degeneration. 07/15/2019 follow up and had MRI brain ordered Outpatient 07/16/2019 MRI brain with and without contrast: Small foci of re stricted diffusion in the inferior aspect of the right cerebellum and the anterior superior aspect of the left cerebellum with associated FLAIR and T2 signal abnormalities, in keeping with acute/early subacute infarcts. CT HEAD:1. No evidence of acute hemorrhage 2. Small infarct in the region of the left cerebellar peduncle versus posterior fossa artifact. Correlation with the prior MRI findings is recommended. CTA HEAD:1. No evidence of aneurysm, focal vessel occlusion, or significant stenosis of the intracranial arteries. 2. Variant anatomy as above. 3. Suspected meningioma in the left temporal region given the calvarial thickening. Follow-up nonurgent outpatient contrast enhanced MR brain is recommended. 4. Nonspecific right mastoid air cell fluid. CTA NECK:No evidence of hemodynamically significant carotid or vertebral artery stenosis. No evidence of dissection. Does not have any neurological deficit No dysphasia, speech fluent, Normal activity, ambulation as per PT OT evaluation Appreciate input from neurology Recommend dual antiplatelet Plavix 75 mg daily/aspirin 81 mg daily for total 21 days Then on aspirin 81 mg daily Patient started on statin Lipitor 40 mg daily: Fasting lipid profile shows LDL 124 Goal LDL less than 70 Patient will need repeat fasting lipids panel checked in 6 months Smoking cessation counseling provided -. modifying life style including limiting EtoH use No arrhythmia noted on overnight telemetry outpatient ZIO 2 weeks-to be scheduled by patient family physician at [facility] neurology in 4-6 weeks after discharge Yulia Monsalve PAC schedule Macular degeneration continue to follow with neuro ophthalmology as scheduled for MD (2) Tobacco use: -Smoking cessation encouraged and pt reports would consider -Nicotine patch DVT Prophylaxis -Lovenox SQ Stable to be discharged home today, family physician follow-up scheduled for next 07/25/2019 at 9:[address] Pedersen at [facility] Subjective No complaint of any headache, no visual symptoms, no shortness of breath no weakness or paresthesia any part of the body Speech fluent Very eager to be discharged home Review of Systems Review of Systems: All systems reviewed & are unremarkable except as noted in HPI & below Neurologic: as per Subjective / HPI; no unsteadiness, no localized weakness, no paralysis, no numbness, no paresthesia, no headache(s) and no problem reported Physical Exam Constitutional: WD/WN, vitals as above no acute distress Eyes: PERRL, conjunctivae normal, anicteric sclerae ENMT: external ear and nose normal, oropharynx normal Neck: trachea midline, no thyromegaly Respiratory: normal respiratory effort, lungs clear to auscultation Cardiovascular: RRR, no murmur, no edema Gastrointestinal (Abdomen): normal bowel sounds, soft, nontender, no hepatosplenomegaly Musculoskeletal: no cyanosis or clubbing, extremities motor strength 5/5 Skin: no rashes, warm and dry Neurologic: PERRL, EOMI, accommodation nl, no face palsy, no dysarthria Psychiatric: A+Ox3, euthymic affect Results & Data Vital Signs (Past 12 Hours) Vital Signs Temp Pulse Pulse Resp BP Pulse Ox 07/20/19 15:00 36.6 C 77 19 127/82 94 07/20/19 11:36 36.6 C 86 18 135/90 96 07/20/19 07:00 36.7 C 82 20 156/92 H 94 07/20/19 04:00 36.6 C 78 20 149/98 H 94 (1) Stroke CVA mechanism: unspecified Qualified Code(s): I63.9 - Cerebral infarction, unspecified
[2019-07-20] MEDS ORDERED: STROKE PATIENT DISCHARGE STA (16:21)
--- NOTE | 2019-07-20 17:18 | Pharmacy Report ---
Pharmacist Stroke Counseling - Date of Service July 20, 2019 - Scope: Pharmacy has been consulted to provide medication discharge counseling for this patient admitted with transient ischemic attack as per the Pharmacist Discharge Counseling for Stroke Patients Protocol. - Medications on Discharge: Home Medications Medication Instructions Recorded Confirmed PreserVision AREDS-2 1 tab PO BID 07/19/19 07/19/19 New Rx's Medication Instructions Recorded aspirin [Ecotrin Low Strength] 81 mg PO QAM 30 Days #30 tab 07/20/19 atorvastatin 40 mg PO QAM 30 Days #30 tab 07/20/19 clopidogrel 75 mg PO QAM 21 Days #21 tab 07/20/19 - Action: The above medications, specifically ones for stroke treatment/prophylaxis, have been reviewed in detail with the patient and/or patient medical sales representative(s) prior to discharge. This includes indication, common adverse reactions, drug interactions, and medication administration. Medication counseling has been employed using the teach-back method to ensure understanding. - Outcome: The patient and/or patient medical sales representative(s) have demonstrated understanding of the medications. Please note, they are aware that the pharmacist will call them within 72 hours post-discharge to confirm that the appropriate medications are being taken and answer any further medication related questions the patient might have at that time. Contact information Individual to be contacted: Bg Relationship to patient (if applicable): Brother Phone number: [phone] (cell) Best time to call: any Additional comments: Patient is hard of hearing, Bg (brother) asked us to call him. He is involved in his care. Discharge plan also involved smoking cessation - asked if they had any questions regarding that. Thank you for allowing pharmacy to be involved in the care of this patient. Please call [phone] or [phone] with any additional questions
--- NOTE | 2019-07-20 17:26 | Discharge Summary ---
Date of Service July 20, 2019 Admission HPI Per Admitting Provider Pt is 74 y/o M with PMH tobacco use presented to ER for abnormal MRI brain. Patient reports 6 months ago had noticed worsening vision described as " dark vision". In April 2019 had sudden onset of decline in vision and floaters. Denies any TONY, dizziness, paresthesias, extremity weakness, speech changes at that time. Patient reports vision decline has been consistent and has not had any worsening. Patient had followed up with ophthalmology Dr Mendiola from 06/10/2019 and was diagnosed with age-related macular degeneration both eyes with active choroidal revascularization and had a for Avastin injection. Reports had second opinion at [place] retina specialist. Patient had follow-up with ophthalmology on 07/15/2019 and patient had additional have Avastin injection and MRI brain was ordered. Patient reports has headaches approximately once a month and had most recent headache 2-3 days ago described as posterior headache relieved with 1 tab of Aleve. Denies any neuro symptoms. 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 Does not use any assist devices for walking. 07/16/2019 MRI brain with and without contrast: Small foci of restricted diffusion in the inferior aspect of the right cerebellum and the anterior superior aspect of the left cerebellum with associated FLAIR and T2 signal abnormalities, in keeping with acute/early subacute infarcts. Patient has not followed up with since . Denies fever/chills, diaphoresis, N/V/D/C, dizziness, syncope, speech changes, neck pain, CP, SOB, orthopnea, palpitations, cough, sore throat, choking, otalgia, rhinorrhea, abdominal pain, paresthesias, weakness, extremity weakness, extremity edema, rashes, urinary symptoms. Principal Diagnosis Acute versus subacute cerebellar infarction/CVA Discharge Exam Constitutional WD/WN, vitals as above no acute distress Eyes PERRL, conjunctivae normal, anicteric sclerae ENMT external ear and nose normal, oropharynx normal Neck trachea midline, no thyromegaly Respiratory normal respiratory effort, lungs clear to auscultation Cardiovascular RRR, no murmur, no edema Gastrointestinal (Abdomen) normal bowel sounds, soft, nontender, no hepatosplenomegaly Musculoskeletal no cyanosis or clubbing, extremities motor strength 5/5 Skin no rashes, warm and dry Neurologic PERRL, EOMI, accommodation nl, no face palsy, no dysarthria Psychiatric A+Ox3, euthymic affect Discharge Data Allergies Allergy/AdvReac Type Severity Reaction Status Date / Time No Known Allergies Allergy Unverified 07/19/19 16:04 Consultations 07/19/19 15:49 ED Decision to Admit Stat 07/19/19 18:39 Consult Case Management - Discharge Planning Routine Consult Neurology Routine Ordered Studies 07/19/19 14:28 CT angio head w con Stat CT angio neck with con Stat CT head/brain wo con Stat Hospital Course (1) Stroke: Acute versus subacute stroke: Pt is 74 y/o M with PMH tobacco use presented to ER for abnormal MRI brain. Patient reports 6 months ago had noticed worsening vision described as " dark vision". In April 2019 had sudden onset of decline in vision and floaters which has continued. Denies any TONY, dizziness, paresthesias, extremity weakness, speech changes at that time. Followed with ophthalmology 05/2019 and vision loss thought secondary to macular degeneration. 07/15/2019 follow up and had MRI brain ordered Outpatient 07/16/2019 MRI brain with and without contrast: Small foci of restricted diffusion in the inferior aspect of the right cerebellum and the anterior superior aspect of the left cerebellum with associated FLAIR and T2 signal abnormalities, in keeping with acute/early subacute infarcts. CT HEAD:1. No evidence of acute hemorrhage 2. Small infarct in the region of the left cerebellar peduncle versus posterior fossa artifact. Correlation with the prior MRI findings is recommended. CTA HEAD:1. No evidence of aneurysm, focal vessel occlusion, or significant stenosis of the intracranial arteries. 2. Variant anatomy as above. 3. Suspected meningioma in the left temporal region given the calvarial thickening. Follow-up nonurgent outpatient contrast enhanced MR brain is recommended. 4. Nonspecific right mastoid air cell fluid. CTA NECK:No evidence of hemodynamically significant carotid or vertebral artery stenosis. No evidence of dissection. Does not have any neurological deficit No dysphasia, speech fluent, Normal activity, ambulation as per PT OT evaluation Appreciate input from neurology Recommend dual antiplatelet Plavix 75 mg daily/aspirin 81 mg daily for total 21 days Then on aspirin 81 mg daily Patient started on statin Lipitor 40 mg daily: Fasting lipid profile shows LDL 124 Goal LDL less than 70 Patient will need repeat fasting lipids panel checked in 6 months Smoking cessation counseling provided -. modifying life style including limiting EtoH use No arrhythmia noted on overnight telemetry outpatient ZIO 2 weeks-to be scheduled by patient family physician at [facility] neurology in 4-6 weeks after discharge Yulia Monsalve PAC schedule Macular degeneration continue to follow with neuro ophthalmology as scheduled for MD (2) Tobacco use: -Smoking cessation encouraged and pt reports would consider -Nicotine patch DVT Prophylaxis -Lovenox SQ Stable to be discharged home today, family physician follow-up scheduled for next 07/25/2019 at 9:[address] Pedersen at [facility] Total Time Total Time Spent Total Time Spent (In Minutes): Approximately 40 minutes Discharge Plan Discharge Items Patient Disposition: Home - Self-Care Reason For Visit: STROKE Discharge Diagnosis: Acute/subacute CVA Activity: Resume your previous activity Non-emergency contact: Primary Care Provider Call non-emergency contact if: you have any medication questions Follow-up/Referrals: Yulia Monsalve PA-C [Physician Milling Machine Tender] - (Neurology follow-up in 4-6 weeks) Jono Frederick MD [Primary Care Provider] - 07/25/19 9:25 am (Hospital follow- up with Dr. Cesar Pedersen on July 25, 2019 at 9:25 AM at [facility]) Diet: Heart Healthy Addtl Attending Provider Instructions: Continue aspirin and Plavix (take with full stomach) for 3 weeks Plan continue with aspirin only You are started on cholesterol lowering medication: Lipitor 40 mg daily Need repeat fasting lipid panel check in 6 months, goal LDL(bad cholesterol); needs to be less than 70 to prevent future stroke IT IS VERY IMPORTANT FOR YOU TO QUIT SMOKING: TO PREVENT FUTURE STROKE, HEART ATTACK Neurology follow-up in 4-6 weeks Strict smoking cessation Modify life style including limiting EtoH use Plavix 75 mg and aspirin 81 mg daily x 21 days then aspirin only 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 continue to follow with neuro ophthalmology as scheduled neurology in 4-6 weeks after discharge Yulia Monsalve PAC -please call office to schedule appointment Risk Factors for Stroke: You can reduce your chances of stroke by working with your medical provider to adopt a healthy lifestyle. Some specific ways to lower your chance of stroke are: * If you are a smoker, now is the time to stop smoking cigarettes * If you are diabetic, improve the control of your blood sugars * Avoid excessive amounts of alcohol * Control high blood pressure * Lose weight if you are overweight * Be sure to lead an active lifestyle * Eat a healthy diet low in salt, cholesterol and fat You should know about other risk factors for stroke that you are unable to control. These include: * Age 55 years or older * Male gender * Certain racial groups: , or / * Family History of Stroke, Mini stroke or Heart Attack * Sickle Cell Disease Follow Up: It is important for you to keep your follow up appointments with your medical provider. Who to Call and When: Medical Emergencies: Call 911 immediately if you experience any of the following warning signs and symptoms of Stroke: * Sudden numbness or weakness of the face, arm or leg, especially on one side of the body * Sudden confusion, trouble speaking or understanding * Sudden trouble seeing in one or both eyes * Sudden trouble walking, dizziness, loss of balance or coordination * Sudden severe headache with no cause Do not delay calling 911 if you experience any warning signs or symptoms of a stroke. Delay in seeking medical attention may affect what treatments can be given to you. . Pending Studies at Discharge: No Stand-Alone Forms: Medications to Prevent Stroke, [facility] [email or web address], Smoking Cessation Medications and DC Order Prescriptions: New atorvastatin 40 mg Tablet 40 mg PO QAM 30 Days Qty: 30 RF: 3 clopidogrel 75 mg Tablet 75 mg PO QAM 21 Days Qty: 21 RF: 0 aspirin [Ecotrin Low Strength] 81 mg Tablet,Delayed Release (Dr/Ec) 81 mg PO QAM 30 Days Qty: 30 RF: 3 Continued PreserVision AREDS-2 [id number] Capsule 1 tab PO BID RF: 0 Discharge Orders: Discharge Order (Routine); Ordered 07/20/19 Ordered By: Malathi Jimenez/Other Patient Handouts: A1C Admission Data Admit Date/Time: 07/19/19 16:58 Attending Provider: Malathi Conti Admit Provider: Philippe García Primary Care Provider: Jono Frederick Other Providers: Jeremy Miramontes ; Curt Diaz Other Interventions: Discharge Summary Assessment (RN) Last Done: 07/20/19 16:24
--- NOTE | 2019-07-22 10:32 | Pharmacy Report ---
Pharmacist Post D/C Phone Note - Phone Note: Date of phone call: July 22, 2019. Individual with whom pharmacist spoke to: Patient's Brother Bg The following questions were reviewed during the phone call with responses listed below each: Can you tell me the medications that you are currently taking as well as when and how you take each medication? -See Table Below When have you missed any doses of your medications? - none What side effects are you having from your medications, specifically, the new medications you were started on? - none What questions do you have about your medications? - none What problems are you having obtaining your medications? - none, all picked up yesterday and started this morning. When is your next appointment with your primary care doctor? - Jul 31, Dr Frederick Additional comments: - Everything is going very well for patient, no problems to report. As per the Pharmacist Discharge Counseling for Stroke Patients Protocol, this phone call has been completed within 72 hours of discharge. Thank you for allowing us to be involved in the care of this patient. - Home Medications: Home Medications Medication Instructions Recorded Confirmed PreserVision AREDS-2 1 tab PO BID 07/19/19 07/19/19 New Rx's Medication Instructions Recorded aspirin [Ecotrin Low Strength] 81 mg PO QAM 30 Days #30 tab 07/20/19 atorvastatin 40 mg PO QAM 30 Days #30 tab 07/20/19 clopidogrel 75 mg PO QAM 21 Days #21 tab 07/20/19
== END 2019-07-20 17:27 | disposition home or self-care (01) | DRG 66 ==
LOC: ED 13:31 → SUATTDRO 16:58 → 2W 16:58